=== PATIENT | female | born 1960 | race Caucasian/White ===

== ENCOUNTER 2023-05-12 14:13 | Outpatient (OUT) | payer OTHER, SELFPAY ==
--- NOTE | 2023-05-12 | XR_ITS ---
The [address] [address] Patient Name: SILVANA CURTIS MRN: [id number] date: 1960 Sex: F Assigned Patient Location: [facility] Current Patient Location: [facility] Accession/Order Number: [id number] Exam Date: 05/12/2023 14:35 Report Date: 05/14/2023 07:13 At the request of: YA HOYT Procedure: XR foot RT min 3V PROCEDURE: XR foot RT min 3V HISTORY: RIGHT FOOT PAIN COMPARISON: None. FINDINGS: BONES:Prominent bunion formation and mild degenerative changes of the first metatarsophalangeal joint. Narrowing and subchondral sclerosis of the second through 5th tarsal-metatarsal joints. No fracture or dislocation. Mild flattening of plantar arch and small calcaneal plantar spur. SOFT TISSUES:No visible soft tissue swelling. EFFUSION:None visible. OTHER: Negative. XR/XR foot RT min 3V IMPRESSION: 1. Prominent bunion formation. 2. Mild to moderate degenerative changes predominantly involving the tarsal-metatarsal joints. 3. Moderate pes planus. Electronically authenticated by: PRUDENCIO BACH Date: 05/14/2023 07:13
--- NOTE | 2023-05-12 | XR_ITS ---
The [address] [address] Patient Name: SILVANA CURTIS MRN: [id number] date: 1960 Sex: F Assigned Patient Location: [facility] Current Patient Location: Accession/Order Number: [id number] Exam Date: 05/12/2023 14:35 Report Date: 05/14/2023 07:07 At the request of: YA HOYT Procedure: XR ankle LT min 3V PROCEDURE: XR ankle LT min 3V, XR foot LT min 3V HISTORY: LEFT ANKLE PAIN , foot pain COMPARISON: None. FINDINGS: BONES:Complete loss of plantar arch. Prominent bunion formation and moderate degenerative changes of the calcaneal-cuboid joint. SOFT TISSUES:No visible soft tissue swelling. EFFUSION:None visible. OTHER: Negative. XR/XR ankle LT min 3V IMPRESSION: 1. Prominent bunion formation and moderate degenerative changes of the calcaneal-cuboid joint. 2. No acute bone abnormality. 3. Minimal degenerative changes of the ankle joint. Electronically authenticated by: PRUDENCIO BACH Date: 05/14/2023 07:07
--- NOTE | 2023-05-12 | XR_ITS ---
The [address] [address] Patient Name: SILVANA CURTIS MRN: [id number] date: 1960 Sex: F Assigned Patient Location: [facility] Current Patient Location: Accession/Order Number: [id number] Exam Date: 05/12/2023 14:35 Report Date: 05/14/2023 07:07 At the request of: YA HOYT Procedure: XR foot LT min 3V PROCEDURE: XR ankle LT min 3V, XR foot LT min 3V HISTORY: LEFT ANKLE PAIN , foot pain COMPARISON: None. FINDINGS: BONES:Complete loss of plantar arch. Prominent bunion formation and moderate degenerative changes of the calcaneal-cuboid joint. SOFT TISSUES:No visible soft tissue swelling. EFFUSION:None visible. OTHER: Negative. XR/XR foot LT min 3V IMPRESSION: 1. Prominent bunion formation and moderate degenerative changes of the calcaneal-cuboid joint. 2. No acute bone abnormality. 3. Minimal degenerative changes of the ankle joint. Electronically authenticated by: PRUDENCIO BACH Date: 05/14/2023 07:07
== END 2023-05-12 14:14 | disposition home or self-care (01) ==
LOC: RAD 14:14
PROVIDERS: Visit Provider Podiatrist Foot & Ankle Surgery
DX: M79.672 Pain in left foot (principal); M79.671 Pain in right foot; M25.572 Pain in left ankle and joints of left foot; M21.611 Bunion of right foot; M21.41 Flat foot [pes planus] (acquired), right foot; M21.612 Bunion of left foot
CPT/HCPCS: 73610; 73630

== ENCOUNTER 2025-03-19 10:29 | Outpatient (OUT) | payer MEDICARE, OTHER, SELFPAY ==
--- OUTSIDE RECORDS SUMMARY | 2025-03-16 07:19 | XMS_ITS | Continuity of Care Document ---
Author Organization [facility] Address [address] [place] [address] Phone Care Team Providers Care Hand Stapler Name Role Phone Laney Majano DO Primary Care Provider Nnamdi Lane DO Attending Provider Huy Shepherd MD Attending Provider Margarito Montesinos APRN Attending Provider Care Teams Patient Care Team Team Status: Active Member Role/Relationship Status Dates Laney Majano DO Primary Care Provider Active Visit Care Team Team Status: Inactive Member Role/Relationship Status Dates Laney Majano DO Primary Care Provider Active Start: January 24, 2025 End: January 24, 2025Jacqui Tejada ProviderActiveStart: January 24, 2025 End: January 24, 2025 Visit Care Team Team Status: Active Member Role/Relationship Status Dates Laney Majano DO Primary Care Provider Active Start: February 16, 2025 Jacqui Tejada ProviderActiveStart: February 16, 2025 Visit Care Team Team Status: Inactive Member Role/Relationship Status Dates Laney Majano DO Primary Care Provider Active Start: March 13, 2025 End: March 13, 2025Marcin Ojeda ProviderActiveStart: March 13, 2025 End: March 13, 2025 Patient Care Team Team Status: Inactive Member Role/Relationship Status Dates Laney Majano DO Primary Care Provider Active Start: March 16, 2025 End: March 16, 2025Gaby Russell ProviderActiveStart: March 16, 2025 End: March 16, 2025 Chief Complaint and Reason for Visit Chief Complaint Admit Date surgical debridement consult right hip b ursitis January 24, 2025 10:25am RECHECK March 13, 2025 2 :12pm 4 week follow up March 16, 2025 1 1:28am Reason for Visit Admit Date Trochanteric bursitis January 24 10:25am Arthritis of lumbosacral spine February 152024 2:12pm Bilateral knee pain March 13, 2025 2 :12pm Chronic pain March 13, 2025 2 :12pm Trochanteric bursitis March 13, 2025 2:12pm Trochanteric bursitis March 16, 2025 11:28am Allergies, Adverse Reactions, Alerts Allergen Type Severity Reaction Last Updated Verified Status No Known Allergies Allergy Unknown March 16, 2025 11:48amYesActive Social History Smoking Status Status Start Date End Date Date of Observa tion Ex-smoker (finding) September 06, 2024 1:09pm Observation Status Observation Response Date of Response Legal Sex Female (finding) Sex Assigned At BirthFemaleFebruary exual OrientationUnknownUnknown UnknownUnknownUnknownUnknown Family History Relationship Condition Age at Onset Recorded Date/T lyssa sister History of coronary artery bypass surgery Unknown Malignant neoplasmUnknownDiabetes mellitusUnknownHeart diseaseUnknownbrother HypertensionUnknownDiabetes mellitusUnknownHistory of strokeUnknownVacuoles, E1 enzyme, X-linked, autoinflammatory, and somatic mutation (VEXAS) syndromUnknown fatherHistory of strokeUnknownDeceasedUnknownChronic obstructive pulmonary diseaseUnknownmotherHypertensionUnknownHistory of open heart surgeryUnknownHeart diseaseUnknownHistory of coronary artery bypass surgeryUnknownDeceasedUnknown Problems Active Problems Problem Diagnosis/Recorded Date Onset Date Stat us COVID April 25, 2024 4:36pm Unknown A ctive Cerumen impaction January 24, 2024 3:28pm Unknown Active Other spondylosis with radic ulopathy, lumbar region November 11, 2023 10:16am Unknown Active Subclinical hypothyroidism January 21, 2024 2:01pm Unknown Active Chronic pain November 11, 2023 10:16am Unknown Acti ve Arthritis January 21, 2024 2:01pm Unknown A ctive [place] eye disease of left eye October 08, 2024 11:17am Un known Active Fibromyalgia January 21, 2024 2:01pm Unknown A ctive Trochanteric bursitis July 25, 2024 4:11pm Unknown Active Obesity (BMI 30.0-34.9) January 24, 2024 3:28pm Unk nown Active Spinal stenosis September 06, 2023 3:00pm Unknown A ctive Intertrigo January 24, 2024 3:28pm Unknown A ctive Bilateral knee pain October 10, 2024 2:58pm Unknown Active GERD (gastroesophageal reflux disease) January 24, 2024 3:28pm Unknown Active Arthritis of lumbosacral spine July 25, 2024 4:11pm Unknown Active Inactive/Resolved Problems Problem Diagnosis/Recorded Date Onset Date Stat Urinary tract infection June 01, 2017 6:08pm Unkn own Resolved Medications Medication Status Dose Units Route Directions Qty Days Refills S tart Date Stop Date End Date Reason(s) Instructions Adherence Gabapentin 300 mg capsule Discontinued 300 MG PO Three times daily 270 90 0 September 06, 2023 12:00am November 22, 2023 12:18pmSpinal stenosis Spinal stenosis, site unspecifiedGabapentin 300 mg capsuleDiscontinued0.ROUTE .ESLDXDY2745Zasm 2023 12:18pmSept2024 1:55pmSpinal stenosis Spinal stenosis, site unspecifiedTAKE 1 CAPSULE BY MOUTH 3 TIMES DAILY Semaglutide (Weight Loss) (Wegovy) 0.25 mg/0.5 mL pen injectorDiscontinued0.25MG SUBCUTevery kmkz21Tikrxlhuv2023 2:07pmNov2023 3:39pmClass 1 obesity Obesity, unspecifiedadminister weeks 1 through 4 of therapyOmeprazole 40 mg capsule,delayed release(DR/EC)Jwnlmiunmbrd22IDKFMfcqd505Alpnvdn 2023 8:56am May 29, 2024 8:53amGastroesophageal reflux disease Gastro-esophageal reflux disease without esophagitisCelecoxib 200 mg capsule Zoosjlouvlrq398FAODLkec14929Rzlwfzzv 2023 12:27pmMarch 2024 9:02am Semaglutide (Weight Loss) (Wegovy) 0.5 mg/0.5 mL pen injectorDiscontinued0.5MG SUBCUTevery ueji23Ekkzlig 2024 10:11amMay 2024 10:47amClass 1 obesity Obesity, unspecifiedOmeprazole 40 mg capsule,delayed release(DR/EC)Active0.ROUTE .MQEHHEV897Ivlbysh 2024 8:53amGastroesophageal reflux disease Gastro-esophageal reflux disease without esophagitisTAKE 1 CAPSULE BY MOUTH EVERY DAYComplies with drug therapyCelecoxib 200 mg gyouiuvAdiuzyovadow640ZZZZ Ppha67112Yotyd 2024 9:02amAugust 2024 2:16pmCelecoxib 200 mg capsule Orspip275QHRRRdcu36756Actdad 2024 2:16pmComplies with drug therapy Gabapentin 300 mg capsuleActive0.ROUTE.SYGGBCW5893Vavcokdbs 2024 1:55pm Spinal stenosis Spinal stenosis, site unspecifiedTAKE 1 CAPSULE BY MOUTH 3 TIMES DAILYComplies with drug therapyDuloxetine 30 mg Capsule,Delayed Release(Dr/Ec)Igexvuivdgfn72TG POTwice dailyJanuary 2017 1:00amJuly 2020 11:40amCephalexin (Keflex) 250 mg cclwlguAdbordeovgxj330KMMBCflr times ixnht9919Cqmmzzm 2017 1:00am December 10, 2020 11:39amMultivitamin (Multiple Vitamin) FjywefYosvuk2SULZKHmplv December 10, 2020 12:00amComplies with drug therapyIbuprofen 800 mg tablet Lbtycdlmxvlb443FQFEQdpey dailyJuly 2020 12:00amJune 2023 10:16am Magnesium 250 mg RjfaydQvrrooajuqxu957SUQUBrlzwBtxu 2020 12:00amSeptember 2023 2:42pmCinnamon Bark (Cinnamon) 500 mg DizwhqyExmentaorgyv625BQATZjlmv dailyJuly 2020 12:00amSeptember 2023 2:42pmCholecalciferol (Vitamin D3) (Vitamin D3) 25 mcg (1,000 unit) ZdihuzOhoirm60IEQRSPyoqwZunc 2020 12:00amComplies with drug therapyBiotin 2,500 mcg HocckbkFciavgyvmtiv0498NBVZJ DailyJuly 2020 12:00amSeptember 2023 2:84tnBrf52 (Ubiquinol) 100 mg DexrxdaOonzqdhishve103XKDDXskxz dailyJuly 2020 12:00amJune 2023 10:16amGlucos Sul 9gyl-Fkx-Ctybj-C-Mn (Glucosamine Chondroitin) 550-30-1 mg TxbnbcdBnfzjywkyezj3ZKPCNBavfvZlhz 2020 12:00amJune 2023 10:16am Fdmsqnln-Ptto-Dpzlz-Oreg-Capry 100 mg-150 mg- 50 mg-150 mg CapsuleDiscontinued1 CAPPODailyJuly 2020 12:00amSeptember 2023 2:43pmCelecoxib 200 mg lnfmvifArrpdwmutght5GJQREMdfja dailyJune 2023 12:00amSeptember 2023 2:43pmFreeTextSi capsule Orally Twice a day; Note: Source Status: Continue; Refills: 3; Qty: 180 Capsule; Provider: Cora Son PCelecoxib 200 mg capsule Jraiktqxbvry354OOOMQqokv dailySeptember 2023 2:41pmDecember 2023 12:28pmFreeTextSi capsule Orally Twice a day; Note: Source Status: Continue; Refills: 3; Qty: 180 Capsule; Provider: Cora Son PPolymyxin B Sulf- Trimethoprim 10,000 unit- 1 mg/mL mbwvxBbltgi5GXHZSOXEYHQPDFCC1D8963Bvh 2024 12:00amwhile awake; do not exceed 6 doses in 24 hoursComplies with drug therapyCholecalciferol (Vitamin D3) 50 mcg (2,000 unit) mddzgkfMqtjlqyjcztg21VSE PODailySeptember 2023 12:00amSept2023 2:42pmMagnesium Oxide 500 mg magnesium vudiskPeptbe753STWABqcitIlqdkzwil 6th, 2024 12:00amComplies with drug therapyBiotin 10 mg xhizlwWmfuec59JHEYKhcqlBoauzisvz 6th, 2024 12:00am Complies with drug therapyCinnamon Bark Extract 500 mg tabletActiveMGPOSept2023 12:00amComplies with drug therapycoenzyme Q10 (Co Q-10)DiscontinuedPO January 21, 2024 12:00amSept2023 2:42pmglucos sul 8ZXr-hyv-iopql-C-Mn (Glucosamine Chondroitin)DiscontinuedPOSept2023 12:00amSeptember 2023 2:42pmTurmeric Root Extract 500 mg lpvomuBsikrs335VA PODailySept2023 12:00amComplies with drug therapyOxycodone- Acetaminophen 5-325 mg nxmiriVpcdvkaurcos4MIVQVMcjkq 4 hours as syxaqo2Rphxiknzb 6th, 2024 12:00amSept2023 2:43pmFreeTextSi tablet as needed for pain Orally every 4 hrs; Note: Source Status: Unknown; Refills:0; Qty: 20 Tablet; Provider: Augie Son AOmeprazole 40 mg capsule,delayed release(/EC) Gdzzzzjuzzql34YZODBaexj085Mmieyjrtg 9th, 2024 12:00amOctober 2023 8:56am Gastroesophageal reflux disease Gastro-esophageal reflux disease without esophagitisNystatin 100,000 unit/gram reykcbQbedef3WEMCCWCAUGQRSRewjo hrrle172Gjtqsukld 9th, 2024 12:00amIntertrigo Erythema intertrigoComplies with drug therapySemaglutide (Weight Loss) (Wegovy) 0.25 mg/0.5 mL pen injectorDiscontinued0.25MGSUBCUTevery izye82Kgcrhlgvi 9th, 2024 12:00amSept2023 2:07pmClass 1 obesity Obesity, unspecifiedadminister weeks 1 through 4 of therapySemaglutide (Weight Loss) (Wegovy) 0.5 mg/0.5 mL pen injectorDiscontinued0.5MGSUBCUTevery weekMarch 27, 2024 1:00amJanuary 2024 10:11amClass 1 obesity Obesity, unspecifiedadminister weeks 5 through 8 of therapyNirmatrelvir- Ritonavir (Paxlovid) 300 mg (150 mg x 2)-100 mg tablets,dose rpvtNdnucgunwmym0DQ .AWHQOMO429Krtpgrzt 2023 1:00amMay 2024 10:47amtake TWO 150 mg tablets of nirmatrelvir with ONE 100 mg tablet of ritonavir twice daily for 5 days POBenzonatate 200 mg lvncgziZzyhkfwspsqd105TYDZEcope times daily as needed for febla50379Sgezbuim 2023 1:00amMay 2024 10:47am Immunizations Immunization Event Date Not Given Reason Dose Number Caramel Cutter Hand Lot Number Reason(s) Given Vaccine Information Statement (VIS) Detail Administration Location COVID-19 mRNA, Comirnaty (Medius) August 09 COVID-19 mRNA, Comirnaty (Medius)August 30OVID-19 mRNA, Comirnaty (Medius)May 23, 2021Trivalent Influenza VaccineFebruary 2019Patient RefusedTrivalent Influenza VaccineDecember 2019Patient Refused Medical Equipment Device Date Implanted Device Details Coated shoulder humeral stem prosthesis December 18, 2020 BERNICE: ()[id number] Issuing Agency: [facility] Device Id: [id number] Expiration Date: 2030-06-11 Lot Number: [id number] shoulder prosthesis headAugust 2020UDI: ()[id number] Issuing Agency: [facility] Device Id: [id number] Expiration Date: 2030-10-31 Lot Number: [id number] shoulder prosthesis base plateAugust 2020UDI: ()[id number] Issuing Agency: [facility] Device Id: [id number] Expiration Date: 2030-11-01 Lot Number: [id number] prosthesis screwAugust 2020UDI: ()[id number] Issuing Agency: [facility] Device Id: [id number] Expiration Date: 2030-08-13 Lot Number: [id number] prosthesis screwAugust 2020UDI: ()[id number] Issuing Agency: [facility] Device Id: [id number] Expiration Date: 2030-06-28 Lot Number: [id number] prosthesis screwAugust 2020UDI: ()[id number] Issuing Agency: [facility] Device Id: [id number] Expiration Date: 2030-06-18 Lot Number: [id number] shoulder prosthesis bodyAugust 2020UDI: ()[id number] Issuing Agency: [facility] Device Id: [id number] Expiration Date: 2030-10-19 Lot Number: [id number] reverse shoulder prosthesis cupAugust 2020 BERNICE: ()[id number] Issuing Agency: [facility] Device Id: [id number] Expiration Date: 2025-04-30 Lot Number: [id number] Vital Signs Vital Reading Result Reference Range Collection Date/Time Height 66 [in_i] January 24, 2025 10:98zgFucajh60.46 kgSeptember 2024 10:38amHeart Rate 68 /vrg86-602Yrfetjtxm 10th, 2025 10:38amOxygen saturation by Pulse acprkwet09 % 95-100September 2024 10:38amBP Hpmmgyed075 mm[Hg]100-140September 2024 10:38amBP Hbeilihec76 mm[Hg]60-100September 2024 10:38amBMI (Body Mass Index)29.7 kg/d5Kofonajzx2024 10:20buQxrgvo40.35 kgOctmary [facility] 2024 11:50amBody Qswpbqtjujw86.7 [degF]97.6-99.0October 2024 11:50amHeart Rate67 /tat57-988Wunuigc 31st, 2025 11:50amRespiratory rate18 /rag52-24Btsdiyd 31st, 2025 11:50amOxygen saturation by Pulse xmthzheb84 %95-100October 2024 11:50amBP Jcdukxek404 mm[Hg]100-140Oct2024 11:50amBP Oejwlados97 mm[Hg]60-100Octmary [facility]inridge [facility] 2024 11:50am Advance Directives Advance Directive Response Recorded Date/ Time Advance Directives No September 06 1:09pm Insurance Providers Guarantor Analisa Rachelpatricetess Address [address] [place] [address] [place] [address]Emiblzt Info.Home Phone: Coverage Status Update:2025 Payer Group Member ID Coverage Type Subscriber Relationship to Subscriber Effective Date Expiration Date [facility] [id number] Encounters Encounter Location(s) Arrival/Admit Date Discharge/Departure Date Discharge/Departure Disposition Provider(s) Departed Physician/ Provider Office Visit -[facility] [place] January 24, 2025 10:25am January 24, 2025 11:02am Discharged to home care or self care (routine discharge) Nnamdi Lane DO Non-patient / Non-visit -[facility] [place] 2024 1:00pm OPAL Tejadaeparted Physician/Provider Office Visit-[facility] 2024 2:12pmOctober 2024 3:11pmDischarged to home care or self care (routine discharge)Kaleb Ojeda MDDeparted Physician/Provider Office Visit-[facility] Family Medicine [facility] 2024 11:28amOctober 2024 12:17pmDischarged to home care or self care (routine discharge)Margarito Carlos Alberto Binks , JAWBONE PULLER Recent Diagnosis Onset Date Admit Date Trochanteric bursitis Unknown January 24, 2025 10:25am Arthritis of lumbosacral spine Unknown O ctober 2024 2:12pm Bilateral knee pain Unknown February 2:12pm Chronic pain Unknown March 13 2:12pm Trochanteric bursitis Unknown March 132024 2:12pm Trochanteric bursitis Unknown March 162024 11:28am Assessments Diagnosis Onset Date Resolution Status Admit Date Trochanteric bursitis acuteSept2024 10:25amArthritis of lumbosacral spineacuteOctober 2024 2:12pmBilateral knee painacuteOctober 2024 2:12pmChronic pain acuteOctober 2024 2:12pmTrochanteric bursitisacuteOctober 2024 2:12pmTrochanteric bursitisacuteOctober 2024 11:28am Plan of Treatment Author Nnamdi Lane [facility]AutK[facility] Centerpt2024 1:05pmPatient has chronic trochanteric bursitis and she has had a couple of steroid injections that do not last more than a few months. Patient has tried rest and rehab. Nothing is providing her long-lasting benefit. We discussed surgical debridement and the risk, benefits, and alternatives to this procedure. Patient is in agreement would like to proceed forward with surgical debridement of her right trochanteric bursa. Author Huy Shepherd [facility] HospitalAutredOctober 2024 3:36pmPatient is voicing reasonable improvement in regards to her lumbar pain at this time. She attributes this to a recent bilateral lumbar facet radiofrequency ablation. We will continue to monitor her symptoms in this region. Anatomy of spine discussed in detail with patient in regards to patients condition. Overall, patient believes their pain is reasonably well controlled and she agrees with our treatment plan. Patients pain is tolerable at this time following a right trochanteric bursa injection. We will continue to monitor and proceed with repeat treatment to the area as needed. We discussed treatment options for the patient's persistent knee pain. She shows notable pain consistent with degenerative changes of the knees. We discussed possible referral to orthopedics, she notes that she is not ready to consider surgery. Patient is a reasonable candidate for diagnostic bilateral genicular nerve blocks which we will proceed with. Risks and benefits of procedure explained to patient; patient verbalizes understanding. It was further explained should this provide significant, short term relief we will proceed with a genicular nerve block and subsequent radiofrequency ablation. Above note written by NESHA Tran, Hearing Aid Consultant. Edited and approved by Dr. Huy Shepherd MD.? Future Tests Future scheduled test information is unavailable Pending Tests Pending diagnostic test information is unavailable Future Visits Future appointment information is unavailable Future Procedures Future procedure information is unavailable Future Medications Future medication information is unavailable Patient Instructions Patient instructions are unavailable
--- OUTSIDE RECORDS SUMMARY | 2025-03-19 10:38 | XMS_ITS | Clinical Summary ---
Author Organization [facility] Address [facility] [place] [address] Care Team Providers Care Pressing Machine Operator Name Role Phone Huy Shepherd MD Unavailable [phone] Medications MedicationSigDispense QuantityRefillsLast FilledStart DateEnd DateStatus celecoxib (CELEBREX) 200 mg capsule 05/12/2023ctive cholecalciferol (VITAMIN D3) 1,000 unit tab tablet Daily12/10/2020ctive gabapentin (NEURONTIN) 300 mg capsule Take by mouth.01/14/2023ctive multivitamin (MULTIPLE VITAMINS) tablet Multivitamin (Multiple Vitamin) Tablet Active 1 TAB PO Daily December 10, 2020 12:00am12/10/2020ctive Magnesium Oxide 500 mg magnesium tab Magnesium Active 500 MG PO Daily December 10, 2020 12:00am12/10/2020ctive Encounters DateTypeDepartmentCare OttlIxxukgufmac33/23/2025 Patient Msg AK Mary Alice Reece, DENZEL.CHICK GRADER Chronic Pain Research Surveyfrom Last 3 Months Social History Tobacco UseTypesPacks/DayYears UsedDateSmoking Tobacco: Never AssessedArea Deprivation IndexAnswerDate RecordedNational Score (1-100), lower number is lower vxyq517706/25/2023State Score (1-10), lower number is lower jtvl709 Data from: https://www.neighborhoodatlas.medicine.[facility].edu/. Last address used for ktmrvmbttzq[address]06/25/2023CommentsUnknownSex and Gender InformationValueDate RecordedSex Assigned at BirthNot on fileLegal Sex Vqdlui0906/08/2023 8:24 AM ESTGender IdentityNot on fileSexual OrientationNot on file Last Filed Vital Signs Vital SignReadingTime TakenCommentsBlood Pressure--Pulse--Temperature-- Respiratory Rate--Oxygen Saturation--Inhaled Oxygen Concentration--Oghgaf29 kg (185 lb 3 oz)06/25/2023 2:39 PM VWMDejais742.6 cm (5' 6 )06/25/2023 2:39 PM EST Body Mass Index29.8906/25/2023 2:39 PM EST Plan of Treatment Health MaintenanceDue DateLast DoneCommentsAnxiety Daetisflm45/28/1978Depression Qjjjjnvfd80/28/1978HIV Ktpghscdy32/28/1978Hepatitis C Kjjexmjtd87/28/1978 DTaP,Tdap,Td Vaccine (1 - Tdap)07/14/1978Mammogram Ygwrsdusp03/29/2000CT Bifljybbfkyj05/28/2005Cologuard (FIT-DNA)07/14/20041647Chykambdcxr14/28/2005 Colorectal Cancer Fkuwtaqpz92/28/2005Diabetes Siorrdgnj59/28/2005Fecal Occult Blood07/14/2004Lipid Uqmmsnryx57/28/8273Dosejhghvpzvm85/28/2005Pneumococcal Vaccine: 50+ (1 of 1 - PCV)07/14/2009Shingrix Vaccine (1 of 2)07/14/2009dvance Directive Cyctorzgqd36/28/2025one Density Wdgcjbeqf14/28/2025ovid-19 Vaccine ( season)/11/2021, 08/30/2020, 08/09/2020Influenza Vaccine (#1)2025RSV Vaccine (1 - 1-dose 75+ series)07/14/2034 Insurance Care Teams Team MemberRelationshipSpecialtyStart DateEnd Date Huy Shepherd MD [address] [address] ReferringPain Management06/08/23
--- OUTSIDE RECORDS SUMMARY | 2025-03-19 10:38 | XMS_ITS | Patient Health Record ---
Author Organization [facility] Address [address] [place] [address] Care Team Providers Care Facsimile Machine Operator Name Role Phone None, Unknown or Primary Care Provider Unavailab le Allergies No Known Allergies Reason For Referral No Information Medications Medication SIG (Take, Route, Frequency, Duration) Notes Start Date End Date Status CeleBREX ActiveGabapentinActive Social History Tobacco Use: Social History Observation Description Date Details (start date - stop date) Former Smoker NA - NA Tobacco Use/Smoking Question Answer Notes Patient is a former smoker Problems Problem Type SNOMED Code ICD Code Onset Dates Problem Status W/U Status Risk Notes Problem Localized, primary o steoarthritis of the ankle and/or foot (146613913) Primary osteoarthritis, right ankle and foot (M19.071) ActiveconfirmedProblemLocalized, primary osteoarthritis of the ankle and/or foot (659261118)Primary osteoarthritis, left ankle and foot (M19.072)Activeconfirmed ProblemAcquired hallux valgus (75589068)Hallux valgus (acquired), right foot (M20.11)ActiveconfirmedProblemAcquired hallux valgus (12767432)Hallux valgus (acquired), left foot (M20.12)Activeconfirmed Plan Of Treatment Pending Test Test Name Order Date Segmental Pressure Study of Lower Extrem ity (50421) 05/12/2023 Insurance Providers Payer Name Payer Address Payer Phone Subscriber Number Group Number Insured Name Patient Relationship to Insured Coverage Start Date Coverage End Date MMO [address] [place], [place] [id number] Analisa Mcgarry Self - patient is the insured Medical (General) History Medical History History ICD Code Arthritis M19.90 Back pain M54.9 Left foot pain M79.672 Right foot pain M79.671 Joint replaced Z96.60 Surgical History Surgery Date(Month/Year) fissure repair 2007 thumb arthroplasty 2018 shoulder replacement/reversal 2020
--- OUTSIDE RECORDS SUMMARY | 2025-03-19 10:38 | XMS_ITS | Patient Health Record ---
Author Organization [facility] Address [facility] [address] Care Team Providers Care Senior Mechanical Project Engineer Name Role Phone Kim Luna Primary Care Provider Unavailab Barry Jimenez Unavailable [phone] Reason For Referral No Information Medications Medication SIG (Take, Route, Frequency, Duration) Notes Start Date End Date Status tumeric 1 tab qd ActiveMultivitaminsOrallyActiveAleve 220 MG1 tablet as needed Orally every 12 hrsActiveGreen Tea 150 MGOrallyActiveGarcinia Cambogia-Chromium 500-200 MG-MCG OrallyActiveUbiquinol 50 MGOrallyActiveCalcium + D 315-200 MG-UNIT1 tablet with meals Orally Twice a dayActiveGlucosamine MSM Complex1 tablet with meals Orally Three times a dayActiveGinkoba 40 MGOrallyActiveKrill Oil 1000 MGOrallyActive ProbioticOrallyActiveFlaxseed OilActiveBlack Cohosh 40 MGOrallyActive Social History Tobacco Use: Social History Observation Description Date Details (start date - stop date) Never Smoker NA - NA tobacco use Question Answer Notes Patient is a: non smoker Problems Problem Type SNOMED Code ICD Code Onset Dates Problem Status W/U Status Risk Notes Problem Pain in limb (06635643) Pain in soft tiss ues of limb (729.5) ActiveconfirmedProblemAcquired hallux valgus (31597314)Hallux valgus (acquired) (735.0)Activeconfirmed Plan Of Treatment Pending Test Test Name Order Date X ray: Foot, left 11/09/2013 Insurance Providers Payer Name Payer Address Payer Phone Subscriber Number Group Number Insured Name Patient Relationship to Insured Coverage Start Date Coverage End Date [employer] [address] [place] [address] [id number] Analisa Mcgarry Self - patient is the insured Medical (General) History Medical History History ICD Code osteoarthritis
--- NOTE | 2025-03-19 10:41 | XR_ITS ---
The [address] [address] Patient Name: SILVANA CURTIS MRN: [id number] date: 1960 Sex: F Assigned Patient Location: [facility] Current Patient Location: [facility] Accession/Order Number: [id number] Exam Date: 03/19/2025 11:00 Report Date: 03/19/2025 11:56 At the request of: YA HOYT DPCaterina Procedure: XR foot LT min 3V LEFT FOOT - 3 views CLINICAL DATA: Numbness and pain at the left toes. No reported injury. COMPARISON: 05/12/2023 Weightbearing AP, lateral and oblique views were obtained. There is osteopenia. Pes planus deformity is seen. Hallux valgus deformity is again noted. There is no acute fracture or dislocation. Degenerative changes are visualized at the first and second metatarsal phalangeal joints as well as at the tarsals. There is a plantar calcaneal spur. There are no significant soft tissue abnormalities. XR/XR foot LT min 3V IMPRESSION: HALLUX VALGUS AND PES PLANUS DEFORMITY. DEGENERATIVE CHANGES. NO ACUTE BONY FINDINGS. Impression dictated by: Ginger Coelho M.D. 03/19/2025 11:56 AM Dictation Location: [place] [address] Electronically authenticated by: [id number] Y Date: 03/19/2025 11:56
== END 2025-03-19 10:30 | disposition home or self-care (01) ==
PROVIDERS: PCP Family Medicine; Visit Provider Podiatrist Foot & Ankle Surgery
DX: M79.672 Pain in left foot (principal); M20.12 Hallux valgus (acquired), left foot; M21.42 Flat foot [pes planus] (acquired), left foot
CPT/HCPCS: 73630